=== PATIENT | female | born 1985 | race Caucasian/White ===

== ENCOUNTER 2025-06-14 10:21 | Emergency (ER) | payer BC, SELFPAY ==
--- OUTSIDE RECORDS SUMMARY | 2025-06-03 11:30 | XMS_ITS | Encounter Summary ---
Author Organization [facility] Address [address] [place] [address] Care Team Providers Care Philosophy Specialist Name Role Phone Renata Astorga D.O. Primary Care Provider [phone] Reason for Referral * Outpatient (Routine) - Authorized Specialty Diagnoses / Procedures Referred By Contac t Referred To Contact Diagnoses Preplacement Exam Procedures OCC Drug screening Dulce Kemp P.A.-C., P.A., M.S. [address] [place] [address] Phone: tel: fax: [facility] Referral ID Status Reason Start Date Expiration Date V isits Requested Visits Authorized [id number] Authorized 06/03/2025 09/03/2026 1 1 Reason for Visit * Reason Comments Drug Screen Pre employment * Appointment Request (Routine) - Closed Specialty Diagnoses / Procedures Referred By Contac t Referred To Contact Occupational Medicine Referral ID Status Reason Start Date Expiration Date Visits Re quested Visits Authorized [id number] Closed 06/02/2025 09/02/2026 1 1 Encounter Details Date Type Department Care Team (Latest Contact Info) Description 06/03/2025 11:30 AM CDT Clinical Support Department of Occupational Medicine in [place], [place] [address] [place] [address] Karolina Lomas L.P.N. Preplacement Exam (Primary Dx) Social History Tobacco Use Types Packs/Day Years Used Date Smoking Tobacco: Former Cigarettes 0 10/09/2003 - 10/09/2009 Smokeless Tobacco: Never Alcohol Use Standard Drinks/Week Comments Not Currently 3 (1 standard drink = 0.6 oz pur e alcohol) Humiliation, Afraid, Rape, and Kick questionnair e Answer Date Recorded Within the last year, have y ou been afraid of your partner or ex-partner? No 10/04/2022 Within the last year, have y ou been humiliated or emotionally abused in other ways by your partner or ex-partner? No Within the last year, have y ou been kicked, hit, slapped, or otherwise physically hurt by your partner or ex-partner? No 10/04/2022 Within the last year, have y ou been raped or forced to have any kind of sexual activity by your partner or ex-partner? No 10/04/2022 Hunger Vital Sign Answer Date Recorded Within the past 12 months, y ou worried that your food would run out before you got the money to buy more. Never true 10/04/20 22 Within the past 12 months, t he food you bought just didn't last and you didn't have money to get more. Never true 10/04/2022 PRAPARE - Transportation Answer Date Re corded In the past 12 months, has l ack of transportation kept you from medical appointments or from getting medications? No 09/09 In the past 12 months, has l ack of transportation kept you from meetings, work, or from getting things needed for daily living? No 10/04/2022 Housing Stability Vital Sign Answer [place] e Recorded In the last 12 months, was t here a time when you were not able to pay the mortgage or rent on time? No 10/04/2022 In the last 12 months, how many places have you lived? 1 10/04/2022 In the last 12 months, was t here a time when you did not have a steady place to sleep or slept in a long term (including now)? No 10/04/2022 Depression Answer Date Recor ded PHQ-9 Total Score (max 27) 4 08/31 Education Answer Date Recorded What is the highest level of school you have completed or the highest degree you have received? Associate degree: occupational, technical, or vocational program 10/23/2019 Comments No Sex and Gender Information Value Date Recorded Sex Assigned at Female 01/03/2018 9:57 AM CDT Legal Sex Female 6:18 PM [employer] Gender Identity Female 01/03/2018 9:57 AM CDT Sexual Orientation Straight 01/03/2018 9: 57 AM CDT documented as of this encounter Procedure Notes * Karolina Lomas L.P.N. - 06/03/2025 11:30 AM CDT Patient presented to complete drug screen for Pre employment, drug screen completed, uneventful. 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 [address] [place] [id number] PCP - General 03/23/17 documented as of this encounter
[2025-06-14 10:35] VITALS: BP 133/83; PULSE 82; RESP 29; TEMP 36.4; O2SAT 100; BMI 23.3
--- NOTE | 2025-06-14 10:37 | CRLHL7_ITS ---
For Patients: As a result of the Century Cures Act, medical imaging exams and procedure reports are released immediately into your electronic medical record. You may view this report before your referring provider. If you have questions, please contact your health care provider. INDICATION: Fell; pain left ankle. TECHNIQUE: Three views. Left ankle. FINDINGS: No acute fracture or dislocation. No bone or soft tissue abnormalities. Tibiotalar articulation is unremarkable. IMPRESSION: Negative radiographic examination of the left ankle. Dictated by Nicole Fernandez MD @ 06/14/2025 10:58:32 AM (Electronically Signed)
--- NOTE | 2025-06-14 11:05 | ED.GENADULT ---
HPI - General Adult General Date Seen: 06/14/25 Chief complaint: Extremity Pain/Injury, Lower Stated complaint: Fell and hurt left ankle Time Seen by Provider: 06/14/25 11:02 History of Present Illness HPI narrative: 40 yo F presenting to the ER today with left ankle pain. She is camping and stepdad of this morning and rolled her ankle. She describes an inversion mechanism and since rolling her ankle has been having pain on the lateral side of her ankle. She did not injure anything else when she fell. She is not having any pain radiating up to her knee. No numbness or pain down into her foot. She is otherwise generally healthy. She has environmental allergies but no other long-term medical conditions. She took ibuprofen for pain and it is quite a bit better now but not completely resolved. 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 Related Data Home Medications ?Medication ?Instructions ?Recorded ?Confirmed No Known Home Medications 06/14/25 06/14/25 Allergies Allergy/AdvReac Type Severity Reaction Status Date / Time No Known Drug Allergies Allergy Verified 06/14/25 10:35 Exam Narrative: Exam Narrative: Constitutional: Appears well-developed and well-nourished. Active. Non-toxic appearing. HENT: Head: Atraumatic. No signs of injury. Nose: No nasal discharge. Mouth/Throat: Mucous membranes are moist. Pharynx is normal. Tonsils symmetric. Uvula midline. Airway patent. Eyes: Conjunctivae normal and EOM are normal. Pupils are equal, round, and reactive to light. Right eye exhibits no discharge. Left eye exhibits no discharge. No icterus. Neck: Normal range of motion. Neck supple. No adenopathy. No stridor. Cardiovascular: Normal rate and regular rhythm. No murmur heard. No murmurs, rubs, or gallops. Brisk capillary refill Pulmonary/Chest: Effort normal. No stridor. No respiratory distress. No wheezes.No rhonchi. No rales. No retractions. Musculoskeletal: Right lower extremity: Normal range of motion. No edema. No tenderness. No deformity. Left lower extremity: Hip, femur, quad, hamstring are normal and nontender. Knee: Normal inspection. No tenderness. No tenderness of the proximal fibula or tibia. Gastroc and calf are nontender. Achilles nontender. Tibial spine and fibular shaft nontender. Ankle: She does have swelling over the lateral malleolus. Medial malleolus is not swollen. No tenderness medially. She does have tenderness over the bony lateral malleolus as well as the soft tissue just anterior to it. Foot as normal inspection. No tenderness of the calcaneus and hindfoot. Midfoot, including the proximal 5th metatarsal are not tender. No swelling. Forefoot and toes are nontender. Strong DP pulse. Normal distal cap refill. She is able to wiggle her toes. Intact distal sensory function to light touch. Neurological: Alert. Normal strength. No cranial nerve deficit or sensory deficit. Coordination normal. GCS eye subscore is 4. GCS verbal subscore is 5. GCS motor subscore is 6. Skin: Skin is warm. No rash noted. Const: Vital Signs, click to edit/add: Vital Signs - 24 hr 06/14/25 10:35 Temperature 97.6 F Pulse Rate [Pulse Oximeter] 82 Respiratory Rate 29 H Blood Pressure [Ri t Upper Arm] 133/83 Pulse Oximetry 100 Oxygen Delivery Me thod Room Air Course Vital Signs Vital signs: Initial Vital Signs Temperature 97.6 F 06/14/25 10:35 Temperature Source Temporal Artery Scan 06/14/25 10:35 Pulse Rate 82 06/14/25 10:35 Respiratory Rate 29 H 06/14/25 10:35 Blood Pressure 133/83 06/14/25 10:35 Blood Pressure Mean 99 06/14/25 10:35 Pulse Oximetry 100 06/14/25 10:35 Oxygen Delivery Method Room Air 06/14/25 10:35 Vital Signs Temperature 97.6 F 06/14/25 10:35 Pulse Rate 82 06/14/25 10:35 Respiratory Rate 29 H 06/14/25 10:35 Blood Pressure 133/83 06/14/25 10:35 Pulse Oximetry 100 06/14/25 10:35 Oxygen Delivery Method Room Air 06/14/25 10:35 Temperature 97.6 F 06/14/25 10:35 Pulse Rate 82 06/14/25 10:35 Respiratory Rate 29 H 06/14/25 10:35 Blood Pressure 133/83 06/14/25 10:35 Pulse Oximetry 100 06/14/25 10:35 Oxygen Delivery Method Room Air 06/14/25 10:35 Medical Decision Making MDM Narrative Medical decision making narrative: This patient presents for evaluation of left ankle pain. Signs and symptoms are consistent with an ankle sprain. There are no signs of fracture on radiograph. The patients neurovascular status is normal. Knee exam is normal. I don't think this is a Maisonneuve injury or a intraosseous ligament injury based on the location of tenderness. A head to toe trauma exam is otherwise negative; the likelihood of other serious sequelae of trauma (spine, head, chest, abdomen, other extremities, pelvis) is low. Plan is for protected weightbearing, placed into a cam boot and given crutches here in the ER. RICE treatment with ice 15-20 minutes every 3 hours, and an bracing. Patient will advance weightbearing and follow-up in 2-4 days. They will begin gentle ROM exercises. Recommend follow-up with her primary care provider in [place] in 5-7 days if not dramatically improved. (local follow-up does not make sense, because she is visiting this area while on a camping trip) . Precautions for return reviewed and questions answered. Discharge Plan Discharge Clinical Impression: Left ankle sprain Patient Disposition: Home, Self-Care Condition: Stable Instructions: Ankle Sprain (ED) Additional Instructions: As we discussed your x-rays look good today. We do not see any sign of a broken bone. We suspect that you have injured the ligaments on the side of your ankle. This is not his and ankle foot sprain. ?. We expect that this should heal with time over the next few days. However if your not dramatically improved within 5-7 days, please recheck with your doctor or with your orthopedic clinic in [place]. To treat the pain you can use Tylenol or ibuprofen. You can use ice for 20 minutes at a time every 3-4 hours to help reduce swelling. Try to keep your ankle elevated at the level of your heart when possible. Use crutches to take weight off her ankle to help with comfort. As it starts to feel better it is okay to bear weight on your left foot. Where the ankle boot to protect her ankle when you are up and around for the next couple of days. His your ankle starts to get better it is okay to remove the boot and start gentle rehab and range of motion exercises. If you have worsening symptoms such as severe swelling, pain or numbness in your foot, discoloration or pallor of your foot, please return to your nearest ER right away. Prescriptions: No Action No Known Home Medications Stand Alone Forms: [employer] Pallet Info Instructions
--- OUTSIDE RECORDS SUMMARY | 2025-06-14 11:52 | XMS_ITS | Clinical Summary ---
Author Organization [facility] Address [address] [place] [address] Care Team Providers Care Cement Truck Loader Name Role Phone Renata Astorga D.O. Primary Care Provider [phone] Source Comments Patient records contain information from all sites at [facility]. For routine questions regarding patient records, call [phone] during business hours, M-F 8:00 AM - 5:00 PM Central Time. Record requests for emergency care only can be directed to [phone] at any time.[facility] Allergies Active Allergy Reactions Criticality Noted Date Comments House Dust Mite Itching Medium 11/29/2019 Allergic Rhinitis, Itchy watery eyes, Sneezing Mold Itching Medium 03/13/2012 Allergic Rhinitis, Itchy watery eyes, Sneezing Allergic Rhinitis, Itchy watery eyes, Sneezing Tree And Shrub Pollen Itching Medium 03/13/2012 Allergic Rhinitis, Itchy watery eyes, Sneezing [place] Pollen Itching Medium 03/13/2012 Seasonal Allergies: Allergic Rhinitis, Itchy watery eyes, Sneezing Medications * This document contains information received from the source organization and may not represent a complete record from that organization. cetirizine (for_ZyrTEC) 10 mg tablet Take 10 mg by mouth daily. 4 Active CHOLECALCIFEROL , VITAMIN D3, ORAL Take 1 capsule by mouth daily. 5 Active fluticasone propionate (FLONASE) 50 mcg/actuation nasal spray Administer 2 sprays into each nostril daily. Active albuterol (ProAir HFA) 90 mcg/actuation inhalerIndicati ons:Asthma Allergic Extrinsic (HCC) Inhale 2 puffs every 4 (four) hours as needed for wheezing. 8 g 3 3 Active ibuprofen (ADVIL,MOTRIN) 200 mg tablet Take 4 tablets (800 mg total) by mouth every 6 (six) hours as needed for pain for up to 10 days. 50 tablet 3 Active ascorbic acid, vitamin C, (ascorbic acid) 500 mg tablet Take 500 mg by mouth daily. Active saccharomyces boulardii (Florastor) 250 mg capsule Take 1 capsule by mouth 2 (two) times a day. Active naproxen (Naprosyn) 500 mg tablet Take 1 tablet (500 mg total) by mouth 2 (two) times a day with meals. Begin taking at onset of menses. Take for up to 5 days. 30 tablet 2 4 Active benzonatate (Tessalon Perles) 100 mg capsule Take 1 capsule (100 mg total) by mouth 3 (three) times a day as needed for cough. 30 capsule 4 Active levonorgestreL- ethinyl estrad (Aviane) 0.1-20 mg-mcg per tablet Take 1 tablet by mouth daily. 84 tablet 4 4 Active Active Problems Problem Noted Date Diagnosed Date Asthma Allergic Extrinsic 11/22/2016 Thrombophilia Personal History 02/12/2014 Overview (07/10/2018): + MTHFR Rhinitis Allergic 07/28/2010 Resolved Problems Problem Noted Date Diagnosed Date Resolved Date Preeclampsia 07/21/202007/25 37 Weeks Gestation 07/18/2020 07/21/2020 Diabetes Mellitus Gestational 05/20/2020 07/21/2020 High Risk 05/20/2020 07/21/20 Urinary Tract Infection Site Not Specified 02/26/2020 04/27/2020 Overview (02/26/2020): UTI: Needs ALISON Maternal Care For Low Transv erse Scar From Previous Delivery 12/30/2019 07/21/2020 Overview (07/07/2020): calculator at new ob 54% Plans ERCD- case request order completed for 08/03/2020 Recurrent Loss Not Currently 08/08/2013 07/25/2023 Encounters * This document contains information received from the source organization and may not represent a complete record from that organization. Date Type Department Care Team Description 06/03/2025 11:30 AM CDT Clinical Support Department of Occupational Medicine in [place], [place] [address] [address] Karolina Lomas L.P.N. Preplacement Exam (Primary Dx) from Last 3 Months Immunizations Immunization Administration Dates Next Due Influenza TIV (IM) 08/08/2013,11/01/2012, 010 Influenza, Unspecified 08/03/2016,2014,09/08/2014,2012,11/01/2012 PPD Test 04/27/2022 Tdap 05/19/2020,01/30/2015,03/19/2012 influenza vaccine quad (FLUZONE/FLUARIX) (6 months and older)(PF) 08/23/2022,07/12/2021,07/13/2020,2019,07/10/2018,10/27/2017 Family History Medical History Relation Name Comments Anxiety disorder Father Depression Father Hypertension Father Learning disorder Father Migraines Father's Sister Anxiety disorder Maternal Grandmother Melanoma Maternal Grandmother Ulcerative colitis Maternal Grandmother Anxiety disorder Mother Pamelavera Sanchezbett Depression Mother Pamelavera Sanchezbett Thyroid cancer Mother Pamela Kelly yes Melanoma Paternal Grandfather Relation Name Status Comments Father Father's Sister Maternal Grandmother Mother Pamela Kelly Paternal Grandfather Social History Tobacco Use Types Packs/Day Years Used Date Smoking Tobacco: Former Cigarettes 0 10/09/2003 - 10/09/2009 Smokeless Tobacco: Never Tobacco Cessation:Counseling Given: Not Answered Alcohol Use Standard Drinks/Week Comments Not Currently [...] place to sleep or slept in a usp (including now)? 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 [employer] Gender Identity Female 01/03/2018 9:57 AM CDT Sexual Orientation Straight 01/03/2018 9: 57 AM CDT Last Filed Vital Signs Vital Sign Reading Time Taken Comments Blood Pressure 120/84 07/09/2024 2:25 PM CDT Pulse 79 07/09/2024 2:25 PM CDT Temperature 36.4 C (97.5 F) 08/22/2023 1:54 AM [employer] Respiratory Rate 16 05/17/2023 11:05 AM CDT Oxygen Saturation 100% 06/27/2023 2:30 PM CDT Inhaled Oxygen Concentration - - Weight 76.9 kg (169 lb 8.5 oz) 07/09/2024 2:25 P M CDT Height 166.3 cm (5' 5.47) 07/09/2024 2:25 PM CD T Body Mass Index 27.81 07/09/2024 2:25 PM CDT Plan of Treatment Health Maintenance Due Date Last Done Comments Hepatitis C Screening 1987 Hepatitis B Vaccines (1 of 3 - 19+ 3-dose series) 2006 Pneumococcal vaccine (0-49 years) (1 of 2 - PCV) 2006 HPV Vaccines (1 - 3-dose SCDM series) 2014 Asthma Action Plan 10/27/2017 Asthma Control Test Questionnaire 10/04/2023 10/04/2022, 12/06/2016 Depression Screening (Annual PHQ-2) 10/09/2024 Asthma Management/Exacerbation Questionnaire (AMQ/AEQ) 04/18/2025 04/18/2024 COVID-19 Vaccine ( season) 2025 08/03/2021, 07/12/2021 Influenza Vaccine (#1) 2025 , 07/12/2021, 07/13/2020, Additional history exists Lipid (Cholesterol) Screening 10/05/2027 10/05/2022, 11/05/2016 Cervical/Vaginal Cancer Screening 07/25/2028 07/25/2023, 07/25/2023, 07/10/2018, Additional history exists DTaP,Tdap,and Td Vaccines (4 - Td or Tdap) 05/19/2030 05/19/2020, 01/30/2015, 03/19/2012 Hepatitis B Screening Discontinued 09/08/2014, 012 HIV Screening Completed 02/05/2020, 09/08/2014 IPV Vaccines Aged Out No longer eligi ble based on patient's age to complete this topic Procedures Procedure Name Priority Date/Time Associated Diagnosis Comments HPV WITH GENOTYPING, PCR, THINPREP Routine 07/25/2023 4:07 PM CDT LIPID PANEL, S Routine 10/05/2022 8:56 AM [employer] Screening Lipid HIV-1/-2 AG AND AB SCRN, PLASMA Routine 02/05/2020 3:03 PM CDT Maternal Care For Low Transverse Scar From Previous Delivery HEPATITIS B SURFACE ANTIGEN Routine 09/08/2014 12:52 PM SUPERINTENDENT [employer] from Last 3 Months or Most Recently Relevant to Health Maintenance Results * HPV with Genotyping, PCR, ThinPrep (07/25/2023 4:07 PM CDT) HPV with Genotyping, ThinPrep, PCR Negative Negative 07/26/2023 1:13 PM CDT ECLR Comment: Negative for high risk HPV by nucleic acid amplification. The following high risk HPV types were not detected: 16, 18, 31, 33, 35, 39, 45, 51, 52, 56, 58, 59, 66, and 68 This result does not rule out HPV in the patient, as the sensitivity of the test depends on the timing of the specimen collection and the quality of the specimen. Result should be correlated with patient's history, clinical presentation, and MANAGER ACADEMIC cytology report. 07/25/2023 4:07 PM CDT 07/26/2023 8:13 AM CDT us Leigh Funez APRN, C.N.P., TA- LAB M ICROBIOLOGY - GENERAL ORDERABLES Final Result [facility] [address] [place] [id number], [facility] ECLR [address] [address] * Lipid Panel (10/05/2022 8:56 AM SUPERINTENDENT [employer]) Triglycerides 54 mg/dL 10/05/2022 9:30 AM SUPERINTENDENT [employer] RDWG Comment: ----REFERENCE VALUE---- Normal: <150 mg/dL Borderline High: 150-199 mg/dL High: 200-499 mg/dL Very High: > or =500 mg/dL Cholesterol, Total 180 mg/dL 2021 9:30 AM SUPERINT[employer]ENT [employer] RDWG Comment: ----REFERENCE VALUE---- Desirable: < 200 mg/dL Borderline High: 200 - 239 mg/dL High: > or = 240 mg/dL Cholesterol, LDL, Calculated 104 mg/dL 10/05/2022 9:30 AM SU[employer]ENT [employer] RDWG Comment: ----REFERENCE VALUE---- Desirable: <100 mg/dL Above Desirable: 100-129 mg/dL Borderline High: 130-159 mg/dL High: 160-189 mg/dL Very High: >=190 mg/dL ----ADDITIONAL INFORMATION---- LDL cholesterol calculated using the Gonzalez/NIH equation. Cholesterol, HDL 65 >=50 mg/dL 10/05/20 9:30 AM SUPERINTENDENT [employer] RDWG Cholesterol, Non-HDL, Calculated 115 mg/dL 10/05/2022 9:30 AM SUPERINT[employer]ENT [employer] RDWG Comment: ----REFERENCE VALUE---- Desirable: <130 mg/dL Above Desirable: 130-159 mg/dL Borderline High: 160-189 mg/dL High: 190-219 mg/dL Very High: > or =220 mg/dL Fasting (8 HR or more) Yes 10/05/2022 8:56 AM [employer] RDWG Blood (Blood, Venous) 10/05/2022 8:56 AM SUPER[employer]ENT [employer] 10/05/2022 8:56 AM SUPER[employer]ENT [employer] us Renata Astorga D.O. LAB BLOOD ADD-ON Final Result [facility] [address] [place] [place] [address], [facility] RDWG [facility] [place] [address] [place] [address] * HIV-1/-2 Ag and Ab Scrn, Plasma (02/05/2020 3:03 PM CDT) HIV Ag/Ab Scrn, P Negative Negative 02/06/2020 1:07 PM CDT ECLR Comment: Negative result does not rule out HIV infection. If exposure to HIV infection occurred <14 days ago, contact the laboratory to request addition of HIV-1 RNA detection / quantification test. HIV-1 p24 Ag Scrn, P Negative Negative 02/06/2020 1:07 PM CDT ECLR Comment: Negative result does not rule out HIV infection. If exposure to HIV infection occurred <14 days ago, contact the laboratory to request addition of HIV-1 RNA detection / quantification test. HIV-1 Ab Scrn, P Negative Negative 02/06/2020 1:07 PM CDT ECLR Comment: Negative result does not rule out HIV infection. If exposure to HIV infection occurred <14 days ago, contact the laboratory to request addition of HIV-1 RNA detection / quantification test. HIV-2 Ab Scrn, P Negative Negative 02/06/2020 1:07 PM CDT ECLR Comment: Negative result does not rule out HIV infection. If exposure to HIV infection occurred <14 days ago, contact the laboratory to request addition of HIV-1 RNA detection / quantification test. Blood (Blood, Venous) 02/05/2020 3:03 PM CDT 02/05/2020 9:30 PM CDT us Nikki Garrett APRN, C.N.P. LAB MICROBIOLOGY - BLO OD ORDERABLES Final Result [facility] [address] [place] [address], [facility] ECLR [facility] in [address] [address] * Hepatitis B Surface Antigen (09/08/2014 12:52 PM SUPERINTENDENT [employer]) Pathologist [facility] HBs Antigen, S Negative Negative POWERCHART Comment: Test Performed by: [address] [address] Custom Protection Officer: Caio Jordan M.D. Blood 09/08/2014 12:5 2 PM SUPER[employer] Nikki Garrett APRN C.NCherisePCherise LAB MICROBIOLOGY - BLO OD ORDERABLES Final Result POWERCHART from Last 3 Months or Most Recently Relevant to Health Maintenance Insurance [facility] Advance Directives For more information, please contact: [phone] * Full Code (Latest Code Status on File) Date Activated Date Inactivated Comments 07/18/2020 10:00 AM 07/21/2020 12:08 PM Question Answer Comments Full Code: Discussed * Full Code Date Activated Date Inactivated Comments 07/18/2020 5:59 AM 07/18/2020 10:00 AM Question Answer Comments Full Code: Discussed Care Teams Cement Truck Loader Relationship Specialty Start Date End Date Renata Astorga D.O. [address] [facility] [place] [id number] PCP - General 03/23/17
== END 2025-06-14 12:09 | disposition home or self-care (01) ==
PROVIDERS: Emergency Provider Emergency Medicine
DX: S93.402A Sprain of unspecified ligament of left ankle, initial encounter (principal); W18.49XA Other slipping, tripping and stumbling without falling, initial encounter; Y92.833 Campsite as the place of occurrence of the external cause
CPT/HCPCS: 73610; 99282; 99283